=== PATIENT | female | born 1985 | race Caucasian/White ===

== ENCOUNTER 2020-11-23 16:21 | Outpatient (CLI) | payer OTHER, SELFPAY ==
[2020-11-23 17:10] LABS: Hematocrit 38.3 % (37.0-47.0); Hemoglobin 13.3 g/dL (12.0-15.0); Mean Platelet Volume 10.3 fl (7.4-10.4); Platelet Count Result 222 k/mm3 (150-375)
[2020-11-23 17:29] LABS: Hemoglobin A1C 5.1 % (<5.7)
[2020-11-23 18:02] LABS: HIV 1/2 Ab P24 Ag Result Negative (Negative)
[2020-11-23 18:55] LABS: Hepatitis B Surface Antigen Negative (Negative)
[2020-11-23 19:11] LABS: Hepatitis C Virus Antibody Negative (Negative)
[2020-11-24 10:38] LABS: Rapid Plasma Reagin Non-Reactive (NonReactive)
== END 2020-11-23 16:22 | disposition home or self-care (01) ==
PROVIDERS: Visit Provider Obstetrics & Gynecology
DX: Z36.89 Encounter for other specified antenatal screening (principal); Z3A.00 Weeks of gestation of pregnancy not specified
CPT/HCPCS: 36415; 83036; 85014; 85018; 85049; 86592; 86703; 86762; 86803; 86900; 86901; 87340; G0432

== ENCOUNTER 2021-04-09 13:05 | Outpatient (RCR) | payer OTHER, SELFPAY ==
[2021-04-09 14:00] VITALS: BP 119/77; PULSE 99
== END 2021-05-16 13:26 | disposition home or self-care (01) ==
LOC: ANHOBOP 13:05
PROVIDERS: PCP Obstetrics & Gynecology
DX: O24.419 Gestational diabetes mellitus in pregnancy, unspecified control (principal); Z3A.32 32 weeks gestation of pregnancy
CPT/HCPCS: 59025

== ENCOUNTER 2021-04-26 09:31 | Outpatient (CLI) | payer OTHER, SELFPAY ==
[2021-04-26] VITALS (9 sets, daily range): BP systolic 122–134; BP diastolic 67–89; PULSE 76–92; TEMP 36.3
[2021-04-26 10:11] LABS: Basophils Percent Auto 0.2 % (0.2-1.2); Eosinophils Absolute Auto 0.1 K/mm3 (0-0.3); Eosinophils Percent Auto 0.7 % (0-4.4); Hematocrit 35.6 % (37.0-47.0); Hemoglobin 12.2 g/dL (12.0-15.0); Immature Granulocyte Absolute 0.04 K/mm3 (0.00-0.031); Immature Granulocyte Percent A 0.5 % (0-0.5); Lymphocytes Absolute Auto 1.95 K/mm3 (0.9-3.2); Lymphocytes Percent Auto 23.4 % (18.3-44.2); Mean Corpuscular HGB Conc 34.3 g/dl (32-36); Mean Corpuscular Hemoglobin 33.3 pg (26-34); Mean Corpuscular Volume 97.3 fl (80-100); Mean Platelet Volume 11.4 fl (7.4-10.4); Monocytes Absolute Auto 0.7 K/mm3 (0.1-0.6); Monocytes Percent Auto 8.5 % (2.6-8.5); Neutrophils Absolute Auto 5.6 K/mm3 (1.3-6.7); Neutrophils Percent Auto 66.7 % (45.5-73.1); Platelet Count Result 187 k/mm3 (150-375); Red Blood Count 3.66 M/mm3 (4.2-5.4); Red Cell Distribution Width 12.9 % (11.5-14.5); White Blood Count 8.4 K/mm3 (4.5-10.0)
[2021-04-26 10:17] LABS: Add Urine Microscopic? YES; Appearance Urine Clear (Clear); Bacteria Urine Trace /hpf; Bilirubin Urine Negative (Negative); Blood Urine Negative (Negative); Color Urine Yellow (Yellow); Glucose Urine UA Negative (Negative); Ketones Urine Negative (Negative); Leukocyte Esterase Ur Negative LEU/UL (NEGATIVE); Mucus Urine Rare /lpf; Nitrate Urine Negative (Negative); Protein Urine 1+ mg/dL (Negative); RBC Urine 0-2 /hpf (0-2); Specific Grav Ur 1.011 (1.001-1.035); Squamous Epithelial Cell Urine Occasional /hpf (Few); Urobilinogen Urine Negative mg/dL (<2.0); WBC Urine 0-3 /hpf (0-3)
[2021-04-26 10:21] LABS: Creatinine Urine 58.8 mg/dL; Total Protein Urine Random 12 mg/dL
[2021-04-26 10:26] LABS: Alanine Aminotransferase 27 U/L (4-35); Albumin Level 3.5 g/dL (3.5-5.1); Alkaline Phosphatase 166 U/L (38-126); Anion Gap 7 mmol/L (8-16); Aspartate Amino Transferase 29 U/L (14-36); Bilirubin,Total 0.2 mg/dL (0.2-1.3); Blood Urea Nitrogen 13 mg/dL (7-17); Calcium 9.6 mg/dL (8.4-10.2); Carbon Dioxide 23 mmol/L (22-30); Chloride 107 mmol/L (98-107); Estimated Glomerular Filt Rate > 60; Glucose 72 mg/dL (65-105); Potassium 3.9 mmol/L (3.4-5.0); Sodium 137 mmol/L (137-145); Uric Acid 5.6 mg/dL (2.5-7.5)
[2021-04-26] MEDS: ACETAMINOPHEN 500 MG TABLET 1000 MG PO (10:57)
== END 2021-04-26 11:35 | disposition home or self-care (01) ==
LOC: ANHOBOP 11:47 → ANHOBPP 11:47
PROVIDERS: Visit Provider Obstetrics & Gynecology
DX: O13.9 Gestational [pregnancy-induced] hypertension without significant proteinuria, unspecified trimester (principal); Z3A.00 Weeks of gestation of pregnancy not specified
CPT/HCPCS: 36415; 59025; 80053; 81001; 82570; 84156; 84550; 85025; 87086; 99199; A9270

== ENCOUNTER 2021-04-27 10:51 | Outpatient (CLI) | payer OTHER, SELFPAY ==
[2021-04-27 12:07] LABS: Collection Time Urine 24 HOURS
[2021-04-27 12:15] LABS: Creatinine Urine 67.3 mg/dL; Total Protein Urine Random 10 mg/dL
[2021-04-27 12:56] LABS: Total Protein Urine 24 Hr 130 mg/24hr (28-141); Total Volume 24 Hour Urine 1300 ml
[2021-04-27 13:28] VITALS: BMI 32.3
[2021-04-27 13:44] LABS: Creatinine Clearance Urine 69.2 ml/min (75-125); Patient Weight 188 Lbs
== END 2021-04-27 10:52 | disposition home or self-care (01) ==
LOC: ANHOBOP 10:52
PROVIDERS: Visit Provider Obstetrics & Gynecology
DX: O13.9 Gestational [pregnancy-induced] hypertension without significant proteinuria, unspecified trimester (principal); Z3A.00 Weeks of gestation of pregnancy not specified
CPT/HCPCS: 81050; 82575; 84156

== ENCOUNTER 2021-05-10 09:18 | Outpatient (CLI) | payer OTHER, SELFPAY ==
[2021-05-10 09:35] VITALS: BP 123/91; PULSE 82
[2021-05-10 09:41] VITALS: BP 123/91; PULSE 81
[2021-05-10 09:45] VITALS: BP 127/96; PULSE 85
[2021-05-10 09:48] LABS: Basophils Percent Auto 0.3 % (0.2-1.2); Eosinophils Absolute Auto 0.1 K/mm3 (0-0.3); Eosinophils Percent Auto 0.6 % (0-4.4); Hematocrit 37.9 % (37.0-47.0); Hemoglobin 12.7 g/dL (12.0-15.0); Immature Granulocyte Absolute 0.06 K/mm3 (0.00-0.031); Immature Granulocyte Percent A 0.8 % (0-0.5); Lymphocytes Absolute Auto 2.05 K/mm3 (0.9-3.2); Lymphocytes Percent Auto 25.8 % (18.3-44.2); Mean Corpuscular HGB Conc 33.5 g/dl (32-36); Mean Corpuscular Hemoglobin 33.3 pg (26-34); Mean Corpuscular Volume 99.5 fl (80-100); Mean Platelet Volume 11.5 fl (7.4-10.4); Monocytes Absolute Auto 0.6 K/mm3 (0.1-0.6); Monocytes Percent Auto 7.7 % (2.6-8.5); Neutrophils Absolute Auto 5.2 K/mm3 (1.3-6.7); Neutrophils Percent Auto 64.8 % (45.5-73.1); Platelet Count Result 168 k/mm3 (150-375); Red Blood Count 3.81 M/mm3 (4.2-5.4); Red Cell Distribution Width 13.2 % (11.5-14.5)
[2021-05-10 09:58] LABS: Add Urine Microscopic? YES; Appearance Urine Cloudy (Clear); Bacteria Urine Trace /hpf; Bilirubin Urine Negative (Negative); Blood Urine Negative (Negative); Color Urine Yellow (Yellow); Glucose Urine UA Negative (Negative); Ketones Urine Negative (Negative); Leukocyte Esterase Ur Negative LEU/UL (NEGATIVE); Mucus Urine Few /lpf; Nitrate Urine Negative (Negative); Protein Urine 1+ mg/dL (Negative); RBC Urine 0-2 /hpf (0-2); Specific Grav Ur 1.025 (1.001-1.035); Squamous Epithelial Cell Urine Many /hpf (Few); Total Protein Urine Random 22 mg/dL; Ur Ttl Prot Creatinine Ratio 0.13 mg/mg (0-0.20); Urobilinogen Urine Negative mg/dL (<2.0)
[2021-05-10 09:59] LABS: Alanine Aminotransferase 21 U/L (4-35); Albumin Level 3.3 g/dL (3.5-5.1); Alkaline Phosphatase 181 U/L (38-126); Anion Gap 6 mmol/L (8-16); Aspartate Amino Transferase 28 U/L (14-36); Bilirubin,Total 0.2 mg/dL (0.2-1.3); Blood Urea Nitrogen 11 mg/dL (7-17); Carbon Dioxide 21 mmol/L (22-30); Chloride 110 mmol/L (98-107); Estimated Glomerular Filt Rate > 60; Glucose 74 mg/dL (65-105); Potassium 4.1 mmol/L (3.4-5.0); Sodium 137 mmol/L (137-145)
[2021-05-10 10:03] VITALS: BP 144/92; PULSE 85
[2021-05-10 10:15] VITALS: BP 127/92; PULSE 77
[2021-05-10 10:30] VITALS: BP 123/87; BP 127/92; PULSE 79; PULSE 82; RESP 18; TEMP 36.7
== END 2021-05-10 10:40 | disposition home or self-care (01) ==
LOC: ANHOBOP 09:22 → ANHOBPP 09:23
PROVIDERS: Advanced Practice Midwife; PCP Nurse Practitioner Family; Visit Provider Obstetrics & Gynecology
DX: O13.9 Gestational [pregnancy-induced] hypertension without significant proteinuria, unspecified trimester (principal); Z3A.00 Weeks of gestation of pregnancy not specified
CPT/HCPCS: 36415; 59025; 80053; 81001; 82570; 84156; 84550; 85025; 87086; 87088; 99199

== ENCOUNTER 2021-05-12 15:09 | Outpatient (CLI) | payer OTHER, SELFPAY ==
[2021-05-12 15:28] LABS: Hematocrit 36.7 % (37.0-47.0); Hemoglobin 12.4 g/dL (12.0-15.0); Mean Corpuscular HGB Conc 33.8 g/dl (32-36); Mean Corpuscular Hemoglobin 33.2 pg (26-34); Mean Corpuscular Volume 98.1 fl (80-100); Platelet Count Result 171 k/mm3 (150-375); Red Blood Count 3.74 M/mm3 (4.2-5.4); Red Cell Distribution Width 12.8 % (11.5-14.5); White Blood Count 7.7 K/mm3 (4.5-10.0)
[2021-05-13 12:58] LABS: Rapid Plasma Reagin Non-Reactive (NonReactive)
== END 2021-05-12 15:10 | disposition home or self-care (01) ==
LOC: ANHLAB 15:11
PROVIDERS: PCP Nurse Practitioner Family; Visit Provider Obstetrics & Gynecology
DX: Z01.812 Encounter for preprocedural laboratory examination (principal); O44.00 Complete placenta previa NOS or without hemorrhage, unspecified trimester; O24.419 Gestational diabetes mellitus in pregnancy, unspecified control; O13.9 Gestational [pregnancy-induced] hypertension without significant proteinuria, unspecified trimester
CPT/HCPCS: 36415; 85027; 86592; 86850; 86900; 86901

== ENCOUNTER 2021-05-13 09:55 | Inpatient (IN) | payer OTHER, SELFPAY ==
--- NOTE | 2021-05-03 12:56 | PC.NURSE ---
PATIENT STATES SHE WILL BE A C/S FOR PLACENTA PREVIA ON 05/13/21--NO ON THE SURGERY SCHEDULE AT TIME OF PRE-ADMIT PATIENT GIVEN INSTRUCTED ON NOTHING BY MOUTH THE NIGHT BEFORE SURGERY AND TO BE IN OB 2 HOURS BEFORE SURGERY TIME PATIENT GIVEN REQUISITION FOR PRE-OP LAB DRAW
[2021-05-13] VITALS (95 sets, daily range): BP systolic 98–137; BP diastolic 62–93; PULSE 65–115; RESP 13–16; TEMP 36.1–36.6; O2SAT 98–100; BMI 33.0
--- NOTE | 2021-05-13 10:07 | LDADM ---
This patient, Rose Saravia, was admitted to Labor/Delivery/Recovery 119 on 05/13/21 at 09:55. Plans for labor, pain management and were discussed with patient. Patient/family oriented to hospital policies and general routines including ID bracelet, bed and alarms, visiting hours, pain management, procedures, bathroom and other care routines, personal items, smoking policy, room service/diet and guest tray routines, security routines, call light and visiting hours. Patient/Family are encouraged to report perceived risks to care and to ask questions if they do not understand what they are told or what they should do. See OBIX for further documentation.
[2021-05-13] MEDS: LACTATED RINGERS 1,000 ML 125 ML IV CONT (10:40)
[2021-05-13] MEDS: LACTATED RINGERS 1,000 ML 999 ML IV CONT (10:46)
--- NOTE | 2021-05-13 10:56 | WPDANESEPPF ---
Anes - Initial Pre Proc Eval Procedure: Operation Date: 05/13/21 12:00 Proposed Procedures p Section - Mikhail Eng MD Date/Time: 05/13/21 10:56 Surgeon: Mikhail Eng MD Pre Op Diagnosis: C Section Patient Data Age: 35 Gender: F Height: 1.63 m Weight: 87.4 kg Last Vital Signs Pulse 93 05/13/21 10:14 BP 126/90 05/13/21 10:14 Allergies Allergy/AdvReac Type Severity Reaction Status Date / Time Sulfa (Sulfonamide Allergy Rash Verified 05/13/21 10:06 Antibiotics) Home Medications Medication Instructions Recorded Confirmed Type prenat.vits,forrest,ygl-tjzb-mhsln 1 tablet PO DAILY 05/03/21 05/13/21 History [ #2] Patient hx anesthesia problems: none Family hx anesthesia problems: none PMFSH Family History Family History Mother Diabetes mellitus Social History Social History Smoking status: Never smoker Substance use: never Spiritual care concerns: No Anes - Eval Final PreProcedure Day of Procedure 05/13/21 10:56 Patient weight: obese Heart: regular rate and rhythm Lungs: clear to auscultation Airway: Mallampati scale class II Neurological: alert and oriented Last oral intake: >/= 8 hours ASA classification: II Emergent: no Anesthetic plan: proceed Anesthesia type and monitoring: regional spinal and standard monitoring Informed Consent: The patient's anesthetic plan and its attendant risks and benefits were discussed with the patient/family/POA. Questions were solicited and answers provided to the satisfaction of the patient/family/POA.
--- NOTE | 2021-05-13 12:28 | PM.IMHP ---
H&P: HPI History of Present Illness Date/Time: 05/13/21 12:28 This patient is a 35-year-old multiparous female at 37 weeks gestation who has a complicated by gestational hypertension, gestational diabetes, placenta previa. We have agreed to perform delivery. She understands the risks. She understands that injuries may occur that result in hospitalization, more surgery, severe illness. She denies any nausea, vomiting, fever, chills. She denies any chest pain or shortness of breath. She denies any contractions, loss of fluid and vaginal bleeding. Chief Complaint: Term Review of Systems Constitutional: Constitutional: Reports no additional constitutional complaints, Denies fatigue, Denies headache(s), Denies lethargy and Denies weakness Eyes: Eyes: Reports no additional eye complaints, Denies blurry vision and Denies photophobia ENT: Reports as per HPI, Denies headache(s) and Denies neck pain Cardiovascular: Cardiovascular: Denies chest pain, Denies diaphoresis, Denies leg edema, Denies palpitations and Denies dyspnea Respiratory: Respiratory: Denies hemoptysis, Denies dyspnea and Denies wheezing Gastrointestinal: Gastrointestinal: Denies abdominal pain, Denies melena, Denies bloating, Denies hematochezia, Denies nausea and Denies vomiting Genitourinary: Genitourinary: Reports no additional female genitourinary complaints Musculoskeletal: Musculoskeletal: Denies joint swelling, Denies neck pain, Denies numbness and Denies stiffness Neurologic: Denies Abnormal speech present, Denies confusion, Denies headache(s), Denies numbness and Denies weakness Psychiatric: Psychiatric: Denies anxiety, Denies confusion, Denies depression, Denies homicidal ideation and Denies suicidal ideation Endocrine: Endocrine: Denies fatigue and Denies palpitations Allergic/Immunologic: Allergic/Immunologic: Denies wheezing PMFSH Family History Family History Mother Diabetes mellitus Social History Social History Smoking status: Never smoker Substance use: never Spiritual care concerns: No Meds Home Medications and Allergies Home Medications Medication Instructions Recorded Confirmed Type prenat.vits,forrest,jor-sfuw-vfnvg 1 tablet PO DAILY 05/03/21 05/13/21 History [ #2] Allergies Allergy/AdvReac Type Severity Reaction Status Date / Time Sulfa (Sulfonamide Allergy Rash Verified 05/13/21 10:06 Antibiotics) Vital Signs Vital Signs - 24 hr 05/13/21 10:14 Pulse Rate 93 Blood Pressure 126/90 Exam Const: General: healthy appearing, comfortable and no acute distress; No confusion Orientation/consciousness: No confusion Eyes: Direct Ophthalmoscopy: No photophobia Resp: Auscultation: clear to auscultation bilaterally, no rales, no rhonchi and no wheezes Cardio: Rate: regular rate Heart sounds: no click, no murmurs and no rubs GI: Inspection: non-distended GI Palp: No abdominal tenderness Auscultation: normal bowel sounds Neuro: General: No confusion Speech: No Abnormal speech present Extrem: General: normal to inspection, no pedal edema and no calf tenderness Assessment and Plan Assessment and plan (1) Gestational hypertension: Code(s): O13.9 - Gestational [-induced] hypertension without significant proteinuria, unspecified trimester Status: Acute (2) Gestational diabetes: Code(s): O24.419 - Gestational diabetes mellitus in , unspecified control Status: Acute (3) Placenta previa: Code(s): O44.00 - Complete placenta previa NOS or without hemorrhage, unspecified trimester Status: Acute Assessment and Plan: this patient is a 35-year-old multiparous female at 37 weeks gestation who presents for delivery. Her is complicated by placenta previa, gestational hyperte
--- NOTE | 2021-05-13 12:31 | WPDHPUPDATE1 ---
History and Physical Update Update Date/Time: 05/13/21 12:31 History and Physical has been reviewed, including an updated exam of the patient. There are NO changes in the patient's condition. Risks, benefits, and alternatives have been discussed and questions answered. Patient agrees to proceed with procedure.
[2021-05-13] MEDS: ONDANSETRON INJ 4 MG/2 ML VIAL IV PUSH (13:07)
[2021-05-13] MEDS: KETOROLAC 30 MG/ML VIAL (*BKC) IM (13:09)
--- NOTE | 2021-05-13 13:57 | W.PM.PROC2 ---
Procedure Note - Detailed Date of Procedure 05/13/21 Pre-op Diagnosis placenta previa, gestational hypertension, gestational diabetes Post-op Diagnosis same Procedure Performed Low-transverse section, ovarian biopsy Surgeon Mikhail Eng MD Anesthesia spinal Indications gestational hypertension, gestational diabetes, placenta previa Findings thickened myometrium, implants of hyperemic tissue over the uterus with adhesions and vascularity. Multi cystic ovary densely adherent to the posterior uterus, having any usual gross morphology. average size , normal Apgars. Description of Procedure The patient was taken the operating room. She was prepped and draped in dorsal supine position with a leftward tilt. This was done after spinal anesthetic was applied. A low-transverse skin incision was made and carried down till of the fascia with the knife. The fascial incision was made with the knife. The fascial incision was extended laterally with Dasilva scissors. The fascia was tented upward superiorly and inferiorly the rectus muscles were dissected off bluntly. The rectus muscles were the midline. The preperitoneal fat and peritoneum were dissected open bluntly at the superior aspect of the rectus muscles. The peritoneal incision was extended superior and inferior with good position of bladder. The uterine incision was made with a scalpel down to the level of the amniotic cavity. The amniotic cavity was entered bluntly. The was delivered. The cord was clamped and cut and the was handed off to waiting pediatric staff. Cord bloods were obtained. The placenta was removed manually. The uterus was exteriorized. The uterus was cleared of all clots, debris and membranes. The uterus was closed in 0 Vicryl running lock fashion. An imbricating over a was placed along the incision line as well. Biopsy ovary was performed using cautery and suture. A wedge resection of a small piece of abnormal appearing ovary was taken. Cut surfaces were cauterized and suture was used to make hemostatic. The uterus was returned to the abdomen. The gutters were cleared of all clots and debris. The fascia was closed with 0 Vicryl running fashion. The subcutaneous tissue was irrigated pinpoint bleeders were cauterized. The skin was closed with subcuticular absorbable joaquim. The skin incision line was covered with glue. The patient tolerated the procedure well. She has taken recovery room in stable condition. Sponge lap and needle counts were correct x2. Estimated Blood Loss 750 Drains No Packing No Pathology yes Complications No immediate complications Condition stable Disposition PACU
[2021-05-13] MEDS: OXYTOCIN 30 UNITS/NS 500 ML 30 UNITS/500 ML BAG 125 UNITS IV CONT (15:55)
[2021-05-13] MEDS: diphenhydrAMINE HCl INJ 50 MG/ML VIAL 25 MG IV PUSH (18:14)
--- NOTE | 2021-05-13 18:38 | PC.NURSE ---
Patient transferred to post room #286 via stretcher. Support person present. Oriented to unit, room, information board, rooming in, admission packet and security measures. Patient verbalizes understanding.
[2021-05-13] MEDS: DEXTROSE 5%/0.45% SOD CHL 1,000 ML 125 ML IV CONT (19:13)
[2021-05-13] MEDS: diphenhydrAMINE HCl INJ 50 MG/ML VIAL 12.5 MG IV PUSH (23:22)
[2021-05-13] MEDS: LORATADINE 10 MG TABLET PO (23:23)
[2021-05-14] MEDS: IBUPROFEN 600 MG TABLET PO ×4 (02:03→23:27)
[2021-05-14 04:40] VITALS: BP 118/70; PULSE 90; RESP 16; TEMP 36.6
[2021-05-14 06:06] LABS: Basophils Percent Auto 0.2 % (0.2-1.2); Eosinophils Percent Auto 0.2 % (0-4.4); Hemoglobin 8.6 g/dL (12.0-15.0); Immature Granulocyte Absolute 0.04 K/mm3 (0.00-0.031); Immature Granulocyte Percent A 0.4 % (0-0.5); Lymphocytes Absolute Auto 1.65 K/mm3 (0.9-3.2); Lymphocytes Percent Auto 16.8 % (18.3-44.2); Mean Corpuscular HGB Conc 33.1 g/dl (32-36); Mean Corpuscular Hemoglobin 33.3 pg (26-34); Mean Corpuscular Volume 100.8 fl (80-100); Mean Platelet Volume 12.1 fl (7.4-10.4); Monocytes Absolute Auto 0.7 K/mm3 (0.1-0.6); Monocytes Percent Auto 7.4 % (2.6-8.5); Neutrophils Absolute Auto 7.4 K/mm3 (1.3-6.7); Platelet Count Result 126 k/mm3 (150-375); Red Blood Count 2.58 M/mm3 (4.2-5.4); Red Cell Distribution Width 12.9 % (11.5-14.5); White Blood Count 9.8 K/mm3 (4.5-10.0)
[2021-05-14] MEDS: MULTIVIT/MIN/PREN/FOL AC/IRON TABLET 1 TAB PO (08:55)
[2021-05-14] MEDS: POLYSACCHARIDE IRON COMPLEX 150 MG CAPSULE PO ×2 (08:55→16:59)
[2021-05-14] MEDS: DOCUSATE SODIUM 100 MG CAPSULE PO ×2 (08:55→16:59)
[2021-05-14 09:00] VITALS: BP 115/73; PULSE 85; RESP 20; TEMP 36.7; O2SAT 98
--- NOTE | 2021-05-14 11:33 | WPDANLDNPN2 ---
Anes-Prog Note L&D-Neuraxial Date/Time: 05/14/21 11:33 Neuraxial medications: intrathecal PF morphine Opiod-related complaints: none Patient feedback: Patient satisfied with post-operative pain management.
--- NOTE | 2021-05-14 11:34 | WPDANLDPN2 ---
Anes-Prog Note L&D Date/Time: 05/14/21 11:34 Comfortable throughout: section Neuraxial method: spinal Epidural/Spinal procedure site: clean & non-tender Neuro status: Neuro function grossly intact. Cardiovascular status: normal Respiratory status: normal Airway patency: baseline Mental status: baseline Post-Op hydration status: normal Vital Signs: Last Vital Signs Temp 36.7 C 05/14/21 09:00 Pulse 85 05/14/21 09:00 Resp 20 05/14/21 09:00 BP 115/73 05/14/21 09:00 Pulse Ox 98 05/14/21 09:00 Pain score (VAS): 0 I/O: Intake & Output 05/13/21 05/14/21 05/14/21 23:59 07:59 15:59 Intake Total 600 1250 240 Output Total 1270 500 400 Balance -670 750 -160 Post-procedural complaints: none Patient feedback: Patient satisfied with anesthetic care.
[2021-05-14 12:04] VITALS: BP 117/81; PULSE 94; RESP 20; TEMP 36.5; O2SAT 99
--- NOTE | 2021-05-14 13:18 | P.PNOB_ITS ---
OB - PN: Subj Subjective Date/time seen: 05/14/21 13:18 Patient comments: no complaints, pain well controlled, tolerating diet and flatus present OB - PN: Obj Data Labs CBC & Chem 7: 05/14/21 04:47 Labs: Laboratory Results - last 24 hr 05/14/21 04:47 WBC 9.8 RBC 2.58 L Hgb 8.6 L D Hct 26.0 L MCV 100.8 H MCH 33.3 MCHC 33.1 RDW 12.9 Plt Count 126 L MPV 12.1 H Immature Gran % (Auto) 0.4 Neut % (Auto) 75.0 H Lymph % (Auto) 16.8 L Armstrong % (Auto) 7.4 Eos % (Auto) 0.2 Baso % (Auto) 0.2 Lymph # (Auto) 1.65 Armstrong # (Auto) 0.7 H Eos # (Auto) 0.0 Baso # (Auto) 0.0 Abs Immat Gran (auto) 0.04 H Absolute Neuts (auto) 7.4 H Absolute Nucleated RBC 0.0 Nucleated RBC % 0.0 OB - PN A/P Plan day: 1 Comments: Post Op LTCS - no problems, routine recovery Time Spent With Patient Time: Total time spent is greater than 50% in coordination of care (as documented) at patient's floor/unit and/or counseling patient: Exam Const: General: cooperative, healthy appearing, comfortable and no acute distress Resp: Auscultation: no crackles, no rales, no rhonchi and no wheezes Cardio: Rhythm: regular rhythm Heart sounds: no click and no murmurs GI: Inspection: non-distended Auscultation: normal bowel sounds Extrem: General: normal to inspection, no pedal edema and no calf tenderness
[2021-05-14] MEDS: HYDROcodone/acetaminophen (*CRX) 5-325 MG TABLET 1 TAB PO ×4 (14:09→23:27)
[2021-05-14 16:41] VITALS: BP 125/89; PULSE 97; RESP 20; TEMP 36.6; O2SAT 100
[2021-05-14] MEDS: TETANUS,DIPHTHERIA,AC PERTUSSIS ADULT (0.5 ML) BOOSTRIX IM (16:59)
[2021-05-14 19:20] VITALS: BP 118/80; PULSE 88; RESP 18; TEMP 36.8; O2SAT 100
[2021-05-14] MEDS: SIMETHICONE 80 MG TAB.CHEW PO ×2 (19:20→23:27)
[2021-05-14 23:47] VITALS: BP 128/76; PULSE 84; RESP 18; TEMP 36.7; O2SAT 99
--- NOTE | 2021-05-14 23:52 | PC.NURSE ---
2300 on 05/14/2021 Patient viewed the discharge video Mother & Baby Care, The First Two Weeks . Patient was given the opportunity and encouraged to ask questions. Patient verbalized understanding of information shared and has been given the mother/baby guide for home reference.
[2021-05-15 04:35] VITALS: BP 123/82; PULSE 86; RESP 16; TEMP 36.5; O2SAT 100
[2021-05-15] MEDS: SIMETHICONE 80 MG TAB.CHEW PO (04:35)
[2021-05-15] MEDS: HYDROcodone/acetaminophen (*CRX) 10-325 MG TABLET 1 TAB PO ×2 (04:39→09:27)
[2021-05-15 07:45] VITALS: BP 132/81; PULSE 89; RESP 18; TEMP 36.8
[2021-05-15] MEDS: DOCUSATE SODIUM 100 MG CAPSULE PO (09:27)
[2021-05-15] MEDS: MULTIVIT/MIN/PREN/FOL AC/IRON TABLET 1 TAB PO (09:27)
[2021-05-15] MEDS: POLYSACCHARIDE IRON COMPLEX 150 MG CAPSULE PO (09:27)
--- NOTE | 2021-05-15 09:42 | PM.OBPNVD ---
OB - PN: Subj Subjective Date/time seen: 05/15/21 09:42 Patient comments: no complaints, pain well controlled, incisional pain, tolerating diet and flatus present OB - PN: Obj Data Labs CBC & Chem 7: 05/14/21 04:47 OB - PN A/P Plan day: 2 Plan: routine care Comments: POD#2 LTCS - no problems, Time Spent With Patient Time: Total time spent is greater than 50% in coordination of care (as documented) at patient's floor/unit and/or counseling patient: Exam Const: General: comfortable, no acute distress and alert Resp: Effort & Inspection: normal respiratory effort Auscultation: no crackles, no rales and no rhonchi Cardio: Rate: regular rate Heart sounds: no click, no murmurs and no rubs GI: Inspection: non-distended GI Palp: No Tenderness to palpation present (GI) Auscultation: normal bowel sounds Other: Incision - CDI Extrem: General: normal to inspection, no pedal edema and no calf tenderness
--- NOTE | 2021-05-15 09:43 | PM.OBDSVD ---
DS: Admitting Diagnosis Admitting Diagnosis Admitting Diagnosis: term DS: Discharge Diagnosis Discharge Diagnosis (1) Gestational hypertension: Code(s): O13.9 - Gestational [-induced] hypertension without significant proteinuria, unspecified trimester Status: Acute OB - DS: Summary OB Procedures : NST and Ultrasound OB Procedures Intrapartum: OB Procedures: : None Peripartum Data Infant Delivery Method: Section Procedures: Procedures Operation Date: 05/13/21 12:00 Actual Procedure Side Surgeon p Section Mikhail Eng MD Time Spent with Patient Time attestation: Total time spent providing and/or coordinating discharge services: DS: Data Data Completed and Pending Pending studies at discharge: Pending at discharge 05/13/21 13:08 Surgical [PTH] Routine Discharge Plan Discharge Discharging Clinician: Mikhail Eng Patient Disposition: Home, Self-Care Activity: pelvic rest Diet: regular Patient Instructions: Antibiotic Form Stand Alone Forms: General Discharge Information Follow-up/Referrals: Mikhail Eng MD [Physician] - Discharge Medications: New hydrocodone-acetaminophen 5-325 mg tablet 1 - 2 tablet PO Q4H PRN (Reason: pain) Qty: 25 RF: 0 Continued #2 Tablet 1 tablet PO DAILY RF: 0 Date of admission: 05/13/21 09:55 Primary Care Provider: NickyGreta Admitting Provider: Mikhail Eng Attending physician on admission: Mikhail Eng Condition: Stable
[2021-05-18 11:05] VITALS: BP 123/85; PULSE 82; RESP 16; TEMP 37; O2SAT 100
== END 2021-05-15 11:50 | disposition home or self-care (01) | DRG 788 ==
LOC: ANHLDR 09:57 → ANHOB2 21:29
PROVIDERS: Admitting Provider Obstetrics & Gynecology; PCP Nurse Practitioner Family; Visit Provider Obstetrics & Gynecology
PROC: 10D00Z1 Extraction of Products of Conception, Low, Open Approach (ICD-10-PCS; CPT 59514; principal; 2021-05-13 12:00)
DX: O44.23 Partial placenta previa NOS or without hemorrhage, third trimester (principal); Z37.0 Single live birth; Z3A.37 37 weeks gestation of pregnancy; O13.4 Gestational [pregnancy-induced] hypertension without significant proteinuria, complicating childbirth; O99.214 Obesity complicating childbirth; E66.9 Obesity, unspecified; O24.429 Gestational diabetes mellitus in childbirth, unspecified control; O34.83 Maternal care for other abnormalities of pelvic organs, third trimester; N83.202 Unspecified ovarian cyst, left side
CPT/HCPCS: 36415; 85025; 88305; 88307; 90715; A9270; J0131; J1200; J1885; J2274; J2405; J2590; J7120

== ENCOUNTER 2023-11-20 02:03 | Day surgery (SDC) | payer OTHER, SELFPAY ==
[2023-11-12 13:27] VITALS: BMI 28.3
--- NOTE | 2023-11-12 13:28 | PC.NURSE ---
Report to the Outpatient Waiting Room, entrance under the green pavilion located off [facility], at time _0700_ on date _[id number]_. Planned Procedure Time: _0900_. Time changes happen often and if your time is changed the preop area will call you the afternoon before. - You and your visitor will be asked to self-screen and do not enter if you have any COVID symptoms. - A mask is optional within the hospital at this time. Patients may have clear liquids (water, carbonated beverages, clear teas, apple juice) until 3 hours prior to surgery with a maximum of 20 ounces. - No food from midnight until time of surgery Take the following medications with a SIP of water the morning of surgery: ___None DO NOT STOP ANY OF YOUR OTHER PRESCRIPTION MEDICATIONS PRIOR TO SURGERY ?EXCEPT THE FOLLOWING Medications to discontinue per physician ____None Date to take last dose Please no make-up, nail mozambican, hairspray, perfume, deodorant, or body powder the day of surgery. No jewelry (including any body piercings) or valuables the day of surgery, leave them at home. Please take a shower or bath the night before, or the morning of, surgery with an antibacterial soap. Wear comfortable, loose fitting clothing. - Jewelry must be removed prior to entering the operating room. Rings and piercings that are not removed may be cut off. - The hospital will not accept responsibility for valuables. - Please leave all valuables, including medications, at home the day of surgery. If you are going home after surgery, a licensed vending route driver must drive you home. - NO public transportation without another adult if you receive anesthesia. - We recommend that an adult stay with you for 24 hours following discharge. - We also recommend that you do not drive, make important decision, drink alcoholic beverages, or take any drugs that were not prescribed by your health care provider for at least 24 hours after your discharge time. Follow any additional instructions given to you from your surgeon. If you or anyone in your household have experienced Covid symptoms in the past week, please notify your surgeon or the nurse liaison at the phone number below for possible testing. Telephone instructions given to __Rose and asked if any additional questions and then verbalized understanding. Patient advised to call surgeon office or pre surgery nurse liaison [phone] if any additional questions.
[2023-11-20] VITALS (9 sets, daily range): BP systolic 96–119; BP diastolic 66–84; PULSE 48–69; RESP 12–16; TEMP 36.3–36.5; O2SAT 98–100
[2023-11-20] MEDS: ACETAMINOPHEN 500 MG TABLET 1000 MG PO (07:02)
--- NOTE | 2023-11-20 07:20 | P.PNAN_ITS ---
Anes - Initial Pre Proc Eval Procedure: Operation Date: 11/20/23 09:00 Proposed Procedures p Diagnostic Laparoscopy - Mikhail Eng MD Date/Time: 11/20/23 07:20 Surgeon: Mikhail Eng MD Pre Op Diagnosis: pelvic mass Patient Data Age: 37 Gender: F Height: 1.63 m Weight: 75 kg Allergies Allergy/AdvReac Type Severity Reaction Status Date / Time Sulfa (Sulfonamide Allergy Mild Rash Verified 11/20/23 07:00 Antibiotics) Home Medications Medication Instructions Recorded Confirmed Type No Home Medications 11/12/23 11/20/23 History Patient hx anesthesia problems: post op nausea/vomiting Family hx anesthesia problems: none Results Review: All pre-operative results and documents have been reviewed as part of the pre- operative evaluation. [facility] Family History Family History Mother Diabetes mellitus Social History Social History Smoking status: Never smoker Substance use: never Living arrangements: with family Spiritual care concerns: No Anes - Eval Final PreProcedure Day of Procedure 11/20/23 07:20 Patient weight: normal Heart: regular rate and rhythm Lungs: clear to auscultation Airway: Mallampati scale class II Neurological: alert and oriented Last oral intake: >/= 8 hours ASA classification: II Emergent: no Anesthetic plan: proceed Anesthesia type and monitoring: general ETT and standard monitoring Results Review: All pre-operative results and documents have been reviewed as part of the pre- operative evaluation. Informed Consent: The patient's anesthetic plan and its attendant risks and benefits were disc ussed with the patient/family/POA. Questions were solicited and answers provided to the satisfaction of the patient/family/POA.
[2023-11-20] MEDS: LACTATED RINGERS 1,000 ML 30 ML IV CONT ×2 (07:21→08:33)
[2023-11-20] MEDS: KETOROLAC 15 MG/ML VIAL (*BKC) IV PUSH (07:21)
--- NOTE | 2023-11-20 07:26 | WPDHPUPDATE1 ---
History and Physical Update Update Date/Time: 11/20/23 07:26 History and Physical has been reviewed, including an updated exam of the patient. There are NO changes in the patient's condition. Risks, benefits, and alternatives have been discussed and questions answered. Patient agrees to proceed with procedure.
[2023-11-20] MEDS: SCOPOLAMINE 1 MG PATCH 1 PATCH TRANSDERM (07:31)
--- NOTE | 2023-11-20 08:49 | P.OP_ITS ---
Procedure Note - Detailed Date of Procedure 11/20/23 Pre-op Diagnosis pelvic mass Post-op Diagnosis Same Procedure Performed Diagnostic laparoscopy, adhesiolysis Surgeon Mikhail Eng MD Anesthesia General Indications Pelvic pain Findings Hemoperitoneum, Stage III endometriosis, adhesions between the uterus to the anterior pelvis, adhesions between the omentum and the anterior abdominal wall, dense adhesions between the ovaries fallopian tubes and uterine cornua. Description of Procedure The patient was taken to the operating room. She was prepped and draped in the dorsal lithotomy position after induction general anesthesia. A 5 mm incision was made with a scalpel on the abdominal skin in the left upper quadrant of the abdomen. A 5 mm trocar was inserted into the intra-abdominal cavity under di rect visualization the scope. In the same fashion a 5 mm left lower quadrant trocar was inserted and a 5 mm infraumbilical trocar was inserted. Fifteen minutes of adhesiolysis. adhesions between the anterior abdominal wall and the omentum, adhesions between the anterior pelvis and the uterus were using LigaSure cautery. This required 15 minutes. The pelvis was irrigated. The pneumoperitoneum was reduced. The trocars were removed. Skin was closed with subcuticular 4 micro. The patient's incisions were covered with Dermabond. She was taken recovery room in stable condition. Sponge lap and needle counts were correct x2. Estimated Blood Loss 10 Complications No immediate complications Condition Stable Disposition Same day
[2023-11-20] MEDS: diphenhydrAMINE HCl INJ 50 MG/ML VIAL 25 MG IV PUSH (09:50)
== END 2023-11-20 10:57 | disposition home or self-care (01) ==
PROVIDERS: Visit Provider Obstetrics & Gynecology
PROC: (CPT 49320; principal; 2023-11-20 09:00)
DX: K66.1 Hemoperitoneum (principal); N73.6 Female pelvic peritoneal adhesions (postinfective); N80.9 Endometriosis, unspecified
CPT/HCPCS: 58660; A9270; J1100; J1170; J1200; J1596; J1885; J2250; J2405; J2704; J2710; J3010; J7120

== ENCOUNTER 2023-12-17 11:52 | Outpatient (CLI) | payer OTHER, SELFPAY | END 2023-12-17 11:53 | disposition home or self-care (01) | LOC: ANHSURGERY 11:57 | PROVIDERS: Visit Provider Obstetrics & Gynecology | DX: N80.9 Endometriosis, unspecified (principal); Z01.818 Encounter for other preprocedural examination | CPT/HCPCS: 36415; 86850; 86900; 86901 ==

== ENCOUNTER 2023-12-26 01:44 | Day surgery (SDC) | payer OTHER, SELFPAY ==
[2023-12-14 08:43] VITALS: BMI 28.0
--- NOTE | 2023-12-14 08:47 | PC.NURSE ---
Report to the Outpatient Waiting Room, entrance under the green pavilion located off [facility], at time 6:30 on date 12/26/23. Planned Procedure Time: 8:30. Time changes happen often and if your time is changed the preop area will call you the afternoon before. - You and your visitor will be asked to self-screen and do not enter if you have any COVID symptoms. - A mask is optional within the hospital at this time. Patients may have clear liquids (water, carbonated beverages, clear teas, apple juice) until 3 hours prior to surgery (5:30) with a maximum of 20 ounces. - No food from midnight until time of surgery Take the following medications with a SIP of water the morning of surgery: PAIN PILL IF NEEDED DO NOT STOP ANY OF YOUR OTHER PRESCRIPTION MEDICATIONS PRIOR TO SURGERY ?EXCEPT THE FOLLOWING Medications to discontinue per physician: N/A Date to take last dose: N/A Please no make-up, nail czech, hairspray, perfume, deodorant, or body powder the day of surgery. No jewelry (including any body piercings) or valuables the day of surgery, leave them at home. Please take a shower or bath the night before, or the morning of, surgery with an antibacterial soap. Wear comfortable, loose fitting clothing. - Jewelry must be removed prior to entering the operating room. Rings and piercings that are not removed may be cut off. - The hospital will not accept responsibility for valuables. - Please leave all valuables, including medications, at home the day of surgery. If you are going home after surgery, a licensed cdl b driver must drive you home. - NO public transportation without another adult if you receive anesthesia. - We recommend that an adult stay with you for 24 hours following discharge. - We also recommend that you do not drive, make important decision, drink alcoholic beverages, or take any drugs that were not prescribed by your health care provider for at least 24 hours after your discharge time. Follow any additional instructions given to you from your surgeon. If you or anyone in your household have experienced Covid symptoms in the past week, please notify your surgeon or the nurse liaison at the phone number below for possible testing. Telephone instructions given to PT - BUBBA DAWKINS and asked if any additional questions and then verbalized understanding. Patient advised to call surgeon office or pre surgery nurse liaison [phone] if any additional questions.
[2023-12-26] VITALS (10 sets, daily range): BP systolic 98–130; BP diastolic 55–87; PULSE 55–89; RESP 8–18; TEMP 36.3–37; O2SAT 97–100
--- NOTE | 2023-12-26 06:41 | WPDANESEPPF ---
Anes - Initial Pre Proc Eval Procedure: Operation Date: 12/26/23 08:30 Proposed Procedures p Total Laparoscopic Hysterectomy with Bilateral Salpingectomy - Mikhail Eng MD Date/Time: 12/26/23 06:41 Surgeon: Mikhail Eng MD Pre Op Diagnosis: endometriosis of pelvic Patient Data Age: 37 Gender: F Height: 1.63 m Weight: 74 kg Allergies Allergy/AdvReac Type Severity Reaction Status Date / Time Sulfa (Sulfonamide Allergy Mild Rash Verified 12/14/23 08:42 Antibiotics) Home Medications Medication Instructions Recorded Confirmed Type oxycodone-acetaminophen 5 mg-325 1 tablet PO Q4H PRN pain #10 tabs 11/20/23 12/14/23 Rx mg tablet Patient hx anesthesia problems: none Family hx anesthesia problems: none Results Review: All pre-operative results and documents have been reviewed as part of the pre-operative evaluation. [facility] Past Medical History Medical History (Updated 12/26/23 @ 06:41 by Vidal Mccray MD) Overweight Surgical History Surgical History (Updated 12/26/23 @ 06:41 by Vidal Mccray MD) H/O laparoscopy Family History Family History Mother Diabetes mellitus Social History Social History Smoking status: Never smoker Alcohol intake: never Substance use: never Substance use type: does not use Living arrangements: with family Spiritual care concerns: No Anes - Eval Final PreProcedure Day of Procedure 12/26/23 06:41 Patient weight: overweight Heart: regular rate and rhythm Lungs: clear to auscultation Airway: Mallampati scale class II Neurological: alert and oriented Last oral intake: >/= 8 hours ASA classification: II Emergent: no Anesthetic plan: proceed Anesthesia type and monitoring: general ETT and standard monitoring Results Review: All pre-operative results and documents have been reviewed as part of the pre-operative evaluation. Informed Consent: The patient's anesthetic plan and its attendant risks and benefits were discussed with the patient/family/POA. Questions were solicited and answers provided to the satisfaction of the patient/family/POA.
[2023-12-26] MEDS: KETOROLAC 15 MG/ML VIAL (*BKC) IV PUSH (07:06)
[2023-12-26] MEDS: LACTATED RINGERS 1,000 ML 30 ML IV CONT ×2 (07:06→11:50)
[2023-12-26] MEDS: ACETAMINOPHEN 500 MG TABLET 1000 MG PO (07:06)
[2023-12-26] MEDS: SCOPOLAMINE 1 MG PATCH 1 PATCH TRANSDERM (07:57)
--- NOTE | 2023-12-26 08:59 | WPDHPUPDATE1 ---
History and Physical Update Update Date/Time: 12/26/23 08:59 History and Physical has been reviewed, including an updated exam of the patient. There are NO changes in the patient's condition. Risks, benefits, and alternatives have been discussed and questions answered. Patient agrees to proceed with procedure.
[2023-12-26] MEDS: ceFAZolin 2 GM/D5W 50 ML 2 GM/50 ML BAG IVPB (09:15)
--- NOTE | 2023-12-26 11:21 | SUR.OPER ---
cysto 11:22 start.
--- NOTE | 2023-12-26 11:35 | SUR.OPER ---
200mL of clear yellow urine drained from zavala catheter intraop
--- NOTE | 2023-12-26 11:59 | W.PM.PROC2 ---
Procedure Note - Detailed Date of Procedure 12/26/23 Pre-op Diagnosis endometriosis of pelvic , pelvic pain Post-op Diagnosis Same Procedure Performed Total laparoscopic hysterectomy, bilateral salpingectomy and left oophorectomy. 30 minutes of adhesiolysis was performed. Surgeon Mikhail Eng MD Anesthesia General Findings Left ovary was densely adherent to the uterine cornua. It was inseparable. Adhesions throughout the pelvis. Particularly in the cornual area bilaterally. Description of Procedure This patient was taken to the operating room. She was prepped and draped in the dorsal lithotomy position after induction of general anesthesia. The uterine manipulator and Nadeen cup were placed. This was done with a speculum and tenaculum. The speculum was placed. The cervix was grasped with a tenaculum. The stay sutures were placed at 3 and 9:00 a.m.. The stay sutures of 0 Vicryl were brought through the appropriately sized Nadeen cup. The tip of the SUE manipulator was placed in the intrauterine cavity. The cup was slid into place around the cervix and into the fornices. It was locked into place. The sutures were then wrapped around the handle and tied under tension. A 5 mm skin incision was made in the left upper quadrant the abdomen. A 5 mm trocar was inserted into the intrauterine cavity under direct visualization of the scope. Pneumoperitoneum was achieved. A left lower quadrant 11 mm incision was made with scalpel. An 11 mm trocar was inserted into the anterior abdominal cavity under direct visualization the scope. A 5 mm infraumbilical incision was made with a scalpel and a 5 mm trocar was inserted the intra-abdominal cavity under direct visualization of the scope. 30 minutes of adhesiolysis was performed. The stone was sharp and blunt dissection. It was done to free the right and left ovary. Bilateral ureteral lysis was performed. This was done from the pelvic brim down to the uterine artery. This was done with careful dissection using sharp and blunt dissection. The fallopian tubes were removed bilaterally. The mesosalpinx around the fallopian tubes were cauterized transected with LigaSure cautery. This was done in a bilateral fashion from the ovary to the uterine cornua. The fallopian tube was transected at the uterine cornu and amputated. The tube was taken out the left lower quadrant trocar site. on the left side, infundibular ligament was cauterized and transected with LigaSure cautery. The ovary was removed as well and mass with the uterus. It was firmly attached to the uterus. , firmly adherent. In a stepwise fashion along the lateral aspects of the uterus the round ligament and broad ligaments were cauterized transected down to the level of the uterine arteries. A bladder flap was created in the bladder was moved distally to the end of the cervix and over the Nadeen cup. The bilateral uterine arteries were cauterized and transected. Colpotomy was then performed. In a circumferential fashion the vagina was transected using unipolar cautery. The incision was made down on the Nadeen cup. The uterus and cervix were taken out through the vagina. A pneumo occluder was placed in the vagina. Right ovary was pexed to the right pelvic sidewall. This was done with interrupted sutures of 2 0 Vicryl. The vaginal cuff was closed with a 0 V lock suture in a running fashion. The pelvis was irrigated with copious amounts antibiotic irrigation. The ureters were again examined and found to be intact and flowing freely under the uterine arteries into the bladder. The bladder was intact. It was examined directly. Cystoscopy was performed. Indigo carmine was seen to egress from both tubes. Bladder was intact. The vagina was irrigated with Betadine solution after removal of the Pneumo occluder. The patient was taken to recovery room. She was stable condition. Sponge lap and needle counts were correct x2. Drains Yes Packing No
[2023-12-26] MEDS: fentaNYL CITRATE INJ (*CRX) 100 MCG/2 ML VIAL 25 MCG IV PUSH ×2 (12:15→12:18)
--- NOTE | 2023-12-26 12:34 | SUR.PHASEI ---
1234: Simple mask removed.
--- NOTE | 2023-12-26 13:00 | PC.NURSE ---
This patient, Rose Saravia, was received from PACU on 12/26/23 at 1300. Patient/family oriented to unit policies and routines.
[2023-12-26] MEDS: DEXTROSE 5%/0.45% SOD CHL 1,000 ML 125 ML IV CONT (13:19)
[2023-12-26] MEDS: HYDROcodone/acetaminophen (*CRX) 10-325 MG TABLET 1 TAB PO ×2 (13:19→17:26)
[2023-12-26] MEDS: SIMETHICONE 80 MG TAB.CHEW PO ×3 (13:19→21:00)
[2023-12-26] MEDS: KETOROLAC 30 MG/ML VIAL (*BKC) IV PUSH ×2 (14:35→21:00)
[2023-12-26] MEDS: HYDROcodone/acetaminophen (*CRX) 5-325 MG TABLET 1 TAB PO (21:00)
[2023-12-27 04:30] VITALS: BP 95/58; PULSE 76; RESP 18; TEMP 37.3; O2SAT 98
[2023-12-27] MEDS: IBUPROFEN 600 MG TABLET PO (04:45)
[2023-12-27] MEDS: HYDROcodone/acetaminophen (*CRX) 10-325 MG TABLET 1 TAB PO (04:45)
--- NOTE | 2023-12-27 08:06 | WPDANESPN ---
Anes - Prog Note Post-Op Date/Time: 12/27/23 08:06 Cardiovascular status: normal Respiratory status: normal Airway patency: baseline Mental status: baseline Post-Op hydration status: normal Vital Signs: Last Vital Signs Temp 37.3 C 12/27/23 04:30 Pulse 76 12/27/23 04:30 Resp 18 12/27/23 04:30 BP 95/58 L 12/27/23 04:30 Pulse Ox 98 12/27/23 04:30 O2 Del Method Room Air 12/26/23 12:50 O2 Flow Rate 10 12/26/23 12:20 Pain Score (VAS): 12/08 I/O: Intake & Output 12/26/23 12/27/23 12/27/23 23:59 07:59 15:59 Intake Total 200 Output Total 950 Balance -750 Post-procedural complaints: none Patient Feedback: Patient satisfied with anesthetic care.
[2023-12-27 08:20] VITALS: BP 105/61; PULSE 64; RESP 16; TEMP 36.9; O2SAT 98
--- NOTE | 2023-12-27 08:27 | PM.GYNPNOP ---
[employer] - A/P Postoperative Procedures: Procedures Operation Date: 12/26/23 08:30 Actual Procedure Side Surgeon p Total Laparoscopic Hysterectomy with Bilateral Salpingectomy,Left Oophorectomy, Cystoscopy Bilateral Mikhail Eng MD Postoperative day: 1 Postoperative status: doing well Postoperative plan: see orders Time Spent With Patient Time: Total time spent is greater than 50% in coordination of care (as documented) at patient's floor/unit and/or counseling patient: Time with patient: less than 15 minutes [employer]- PN:Subj Post-Op Subjective Date/time seen: 12/27/23 08:27 Subjective: patient reports feeling better, patient has no complaints and pain is well controlled Exam Const: General: healthy appearing, comfortable and no acute distress Resp: Auscultation: clear to auscultation bilaterally, no rales, no rhonchi and no wheezes Cardio: Rate: regular rate Heart sounds: no click, no murmurs and no rubs GI: Inspection: non-distended Auscultation: normal bowel sounds Extrem: General: normal to inspection, no pedal edema and no calf tenderness [employer] - PN: Obj Data Vital Signs Vital Signs: Vital Signs - 24 hr 12/26/23 11:50 12/26/23 12:00 12/26/23 12:05 Temperature 97.3 F L Pulse Rate 89 80 82 Respiratory Rate 12 10 L 12 Blood Pressure 114/71 111/78 119/81 Pulse Oximetry 100 100 100 Oxygen Delivery Simple Face Mask Simple Face Mask Simple Face Mask Oxygen Flow Rate 10 10 10 12/26/23 12:20 12/26/23 12:35 12/26/23 12:50 Temperature 98.0 F Pulse Rate 55 L 63 63 Respiratory Rate 8 L 12 12 Blood Pressure 105/72 111/76 112/80 Pulse Oximetry 100 100 100 Oxygen Delivery Simple Face Mask Room Air Room Air Oxygen Flow Rate 10 12/26/23 13:05 12/26/23 17:20 12/26/23 19:20 Temperature 98.5 F 98.3 F 98.6 F Pulse Rate 82 62 61 Respiratory Rate 16 16 18 Blood Pressure 118/76 98/55 L 111/65 Pulse Oximetry 97 98 97 Oxygen Delivery Oxygen Flow Rate 12/27/23 04:30 Temperature 99.2 F Pulse Rate 76 Respiratory Rate 18 Blood Pressure 95/58 L Pulse Oximetry 98 Oxygen Delivery Oxygen Flow Rate Intake/Output Intake/Output: Intake & Output 12/24/23 12/25/23 12/26/23 12/27/23 23:59 23:59 23:59 23:59 Intake Total 350 Output Total 1550 Balance -1200 Meds/Results Medications: Active Medications Generic Name Dose Route Start Last Admin Trade Name Freq PRN Reason Stop Dose Admin Hydrocodone Bitart/Acetaminophen 1 tab 12/26/23 12:52 12/26/23 21:00 Hydrocodone/Acetaminophen (*Crx) 5-325 Mg Tablet PO 1 tab Q3H PRN Administration Pain Rated 5 or Less Hydrocodone Bitart/Acetaminophen 1 tab 12/26/23 12:52 12/27/23 04:45 Hydrocodone/Acetaminophen (*Crx) 10-325 Mg Tablet PO 1 tab Q3H PRN Administration Pain Rated 6 or Greater Dextrose/Sodium Chloride 1,000 mls @ 125 mls/hr 12/26/23 12:52 12/27/23 04:28 Dextrose 5% Sodium Chloride 0.45% IV CONT Not Given .Q8H NISH Ibuprofen 600 mg 12/26/23 12:52 12/27/23 04:45 Ibuprofen 600 Mg Tablet PO 600 mg Q6H PRN Administration Cramping Ketorolac Tromethamine 30 mg 12/26/23 12:52 12/26/23 21:00 Ketorolac 30 Mg/Ml Vial (*Bkc) IV PUSH 12/31/23 12:51 30 mg Q6H PRN Administration Pain Rated 4-6 Naloxone HCl 0.1 mg 12/26/23 12:52 Naloxone Hcl 0.4 Mg/Ml Vial IV PUSH Q2M PRN Respiratory rate less than 10 Ondansetron HCl 4 mg 12/26/23 12:52 Ondansetron Inj 4 Mg/2 Ml Vial IV PUSH Q6H PRN Nausea And Vomiting Simethicone 80 mg 12/26/23 12:52 12/26/23 21:00 Simethicone 80 Mg Tab.Chew PO 80 mg TIDWM NISH Administration
[2023-12-27] MEDS: HYDROcodone/acetaminophen (*CRX) 5-325 MG TABLET 1 TAB PO (08:56)
[2023-12-27] MEDS: SIMETHICONE 80 MG TAB.CHEW PO (08:57)
== END 2023-12-27 10:00 | disposition home or self-care (01) ==
LOC: ANHSURGERY 06:30 → ANHOB2 13:11
PROVIDERS: Visit Provider Obstetrics & Gynecology
PROC: 0UT9FZZ Resection of Uterus, Via Natural or Artificial Opening With Percutaneous Endoscopic Assistance (ICD-10-PCS; CPT 58571; principal; 2023-12-26 08:30)
DX: N80.00 Endometriosis of the uterus, unspecified (principal); N80.203 Endometriosis of bilateral fallopian tubes, unspecified depth; N73.6 Female pelvic peritoneal adhesions (postinfective); N80.03 Adenomyosis of the uterus; D27.1 Benign neoplasm of left ovary
CPT/HCPCS: 58571; 88307; 99199; A9270; J0690; J1100; J1170; J1200; J1885; J2250; J2405; J2704; J3010; J7030; J7120; Q9968